=== PATIENT | female | born 1980 | race Caucasian/White ===

== ENCOUNTER → 2020-03-07 | Outpatient (CLI) | payer OTHER ==
[~2020-03-07] MED LIST: ADDERALL 30 MG30 MG PO; BUPROPION XL300 MG PO; CYMBALTA60 MG PO; DIPHENHIST50 MG PO; LIPITOR 20 MG T20 M1 PO; NORCO 5-325 TA1 EAC1 PO; PERCOCET 7.5-31 EAC1 PO; TRESIBA100 UNIT/1 SUBQ; TRULICITY1.5 MG/0.5 SUBQ; ZESTRIL40 MG PO
[2020-03-07 08:42] LABS: CALCIUM 8.9 mg/dL (8.5-10.1); CREATININE 0.8 mg/dL (0.6-1.3); POTASSIUM 4.3 mmol/L (3.5-5.1)
[2020-03-09 00:29] LABS: HEMATOCRIT 40.7 % (37.0-47.0); HEMOGLOBIN 13.6 gm/dL (12.0-15.0); MCH 29.3 pg (26.0-34.0); MCHC 33.4 g/dL (28.0-37.0); MCV 87.9 fL (80.0-100.0); MPV 9.8 fl. (7.2-11.1); RBC 4.63 mil/uL (4.20-5.00); RDW-CV 14.3 % (10.5-14.5); WBC 5.8 thou/uL (4.0-11.0)
== END ==
LOC: M.LAB 07:23
PROVIDERS: ATTEND Podiatrist
DX: M79.672 Pain in left foot (principal)

== ENCOUNTER 2020-03-10 21:40 | Emergency (ER) | payer OTHER ==
[~2020-03-10] VITALS: Ht 175.3 cm; Wt 127.0 kg
[2020-03-10] MEDS ORDERED: DIPHENHIST50 MG PO (21:52)
[2020-03-10] MEDS ORDERED: NORCO 5-325 TA1 EAC1 PO (21:52)
[2020-03-10] MEDS ORDERED: PERCOCET 7.5-31 EAC1 PO (22:09)
[2020-03-10 22:36] VITALS: BP 118/74
== END 2020-03-10 22:37 | disposition home or self-care (01) ==
LOC: M.ERS 21:40
DX: S90.112A Contusion of left great toe without damage to nail, initial encounter (principal); S90.122A Contusion of left lesser toe(s) without damage to nail, initial encounter; G89.18 Other acute postprocedural pain; X58.XXXA Exposure to other specified factors, initial encounter; Y93.89 Activity, other specified; Y92.89 Other specified places as the place of occurrence of the external cause; Y99.8 Other external cause status

== ENCOUNTER → 2020-04-10 | Outpatient (CLI) | payer OTHER | LOC: M.LAB 07:38 | PROVIDERS: ATTEND Podiatrist | DX: Z01.812 Encounter for preprocedural laboratory examination (principal); Z11.59 Encounter for screening for other viral diseases; M79.672 Pain in left foot ==

== ENCOUNTER 2020-04-14 07:20 | Emergency (ER) | payer OTHER ==
[~2020-04-14] VITALS: Ht 167.6 cm; Wt 111.1 kg
[~2020-04-14 07:20] MED LIST changes: -ADDERALL 30 MG30 MG PO; -BUPROPION XL300 MG PO; -CYMBALTA60 MG PO; -LIPITOR 20 MG T20 M1 PO; -TRESIBA100 UNIT/1 SUBQ; -TRULICITY1.5 MG/0.5 SUBQ; -ZESTRIL40 MG PO
[2020-04-14] MEDS ORDERED: TRESIBA100 UNIT/1 SUBQ (07:50)
[2020-04-14] MEDS ORDERED: TRULICITY1.5 MG/0.5 SUBQ (07:50)
[2020-04-14] MEDS ORDERED: CYMBALTA60 MG PO (07:50)
[2020-04-14] MEDS ORDERED: LIPITOR 20 MG T20 M1 PO (07:52)
[2020-04-14] MEDS ORDERED: ADDERALL 30 MG30 MG PO (07:52)
[2020-04-14] MEDS ORDERED: BUPROPION XL300 MG PO (07:52)
[2020-04-14] MEDS ORDERED: ZESTRIL40 MG PO (07:52)
[2020-04-14 08:53] VITALS: BP 148/98
== END 2020-04-14 08:54 | disposition home or self-care (01) ==
LOC: M.ERS 07:20
DX: M96.831 Postprocedural hemorrhage of a musculoskeletal structure following other procedure (principal); E11.9 Type 2 diabetes mellitus without complications; K21.9 Gastro-esophageal reflux disease without esophagitis; G47.30 Sleep apnea, unspecified; Z88.1 Allergy status to other antibiotic agents; Z88.8 Allergy status to other drugs, medicaments and biological substances